=== PATIENT | male | born 1960 | race Caucasian/White ===

== ENCOUNTER → 2016-08-27 | Outpatient (CLI) | payer MEDICARE, MEDICAID ==
[~2016-08-27] MED LIST: ALBU8.5H2 IH; ATOR20TA66 PO; B12/1TAB3 PO; BENZ-23 PO; CLN150C PO; CYAN50TA3 PO; EXEN2PEN INJ; FAMO-119 PO; FAMO20TA5 PO; FENO145T2 PO; HYDR-1231 PO; HYDR-700 PO; IBUP800T26 PO; KETO10TA PO; LEVO250T7 PO; LEVO500T2 PO; LISI-552 PO; LISI10TA2 PO; MECL-106 PO; METF500T4 PO; METF500T8 PO; METO-333 PO; NF-ESOM40C PO; OMG1KC PO; ONDA8TAB12 PO; PANT20TA2 PO; PANT40TA2 PO; PANT40TA3 PO; POLY17PO23 PO; PRD20T PO; SERT50TA9 PO; TRAM-21 PO
--- OUTSIDE RECORDS SUMMARY | 2016-08-27 12:14 | XMS REPORT | Continuity of Care Document ---
Author Author [facility] Organization [facility] Address Unknown Phone Unavailable Care Team Providers Care Inspector Eyeglass Name Role Phone BullrickDarya PCP [phone] Source Comments Some departments are not documenting in the electronic medical record. If you do not see the information that you expected, contact Release of Information in the Health Information Management department at [phone] for further assistance in locating additional records.[facility] Active Allergies and Adverse Reactions Allergen Noted Date Severity Reactions Comments Aspirin 02/17/2016 Low NAUSEA AND VOMITING Penicillins 02/17/2016 Medium HIVES Current Medications Prescription Sig. Disp. Refills Start End Date Status Date pantoprazole DR Take 40 mg by mouth Active (PROTONIX) 40 mg tablet daily. lisinopril/hydrochlorothi Take 20 mg by mouth Active azide (ZESTORETIC) daily. 20/12.5 mg tablet 20 mg sertraline (ZOLOFT) 50 mg Take 50 mg by mouth Active tablet daily. hydrOXYzine (ATARAX) 25 Take 25 mg by mouth three Active mg tablet times daily as needed for Itching. metFORMIN (GLUCOPHAGE) Take 500 mg by mouth Active 500 mg tablet twice daily with meals. DOCOSAHEXANOIC ACID/EPA Take 1,000 mg by mouth Active (FISH OIL PO) daily. cyanocobalamin(+) Take 100 mcg by mouth Active (VITAMIN B-12) 100 mcg daily. tablet Active Problems Problem Noted Date Abnormal liver enzymes 02/20/2016 HTN (hypertension) Anxiety Depression GERD (gastroesophageal reflux disease) Type 2 diabetes mellitus (HCC) Social History Tobacco Use Types Packs/Day Years Used Date Former Smoker Cigarettes 1.5 13 02/16/1977 - 02/16/2003 Alcohol Use Drinks/Week oz/Week Comments Yes 0 Standard 0.0 Last drink 42 years old, prior to that 6 beers/day drinks or for 10 days. equivalent Last Filed Vital Signs Vital Sign Reading Time Taken Blood Pressure 138/69 04/27/2016 12:20 PM CDT Pulse 54 04/27/2016 12:20 PM CDT Temperature 36.4 C (97.6 F) 04/27/2016 12:20 PM CDT Respiratory Rate - - Height 1.727 m (5' 8") 04/27/2016 12:20 PM CDT Weight 81.012 kg (178 lb 9.6 oz) 04/27/2016 12:20 PM CDT Body Mass Index 27.16 04/27/2016 12:20 PM CDT Oxygen Saturation 98% 04/27/2016 12:20 PM CDT Plan of Care Date Type Specialty Providers Description 11/02/2016 Appointment Hepatology Radu Porter MD [address] [facility] [address] [place] [address] [phone] (Fax) Health Maintenance Due Date Last Done Comments Physical (Comprehensive) 1967 Exam Pertussis Vaccine 1971 Tetanus Vaccine 1977 Dilated Eye Exam 1978 Foot Exam 1978 Microalbumin 1978 Pneumonia Vaccine (Dm) 1978 Colorectal Cancer 2010 Screening Influenza Vaccine 03/24/2016 Hba1c 10/26/2016 04/27/2016, 02/17/2016 Hepatitis C Screening Completed 02/17/2016 Results from Last 3 Months Not on file
[2016-08-27 12:54] LABS: ALBUMIN 4.5 G/DL (3.2-4.5); BILIRUBIN,DIRECT 0.2 MG/DL (0.0-0.3); BILIRUBIN,INDIRECT 0.3 MG/DL; BILIRUBIN,TOTAL 0.5 MG/DL (0.1-1.0); TOTAL PROTEIN 7.5 G/DL (6.4-8.2)
== END ==
LOC: LAB 12:11
PROVIDERS: ATTEND Physician Assistant
DX: E78.2 Mixed hyperlipidemia (principal)
CPT/HCPCS: 36415; 80061; 80076

== ENCOUNTER 2016-09-17 22:23 | Emergency (ER) | payer MEDICARE, MEDICAID ==
[~2016-09-17] VITALS: Ht 167.6 cm; Wt 81.6 kg
[~2016-09-17 22:23] MED LIST changes: -CYAN50TA3 PO; -EXEN2PEN INJ; -FAMO-119 PO; -LISI-552 PO; -MECL-106 PO; -METF500T8 PO; -METO-333 PO; -NF-ESOM40C PO; -ONDA8TAB12 PO; -PANT40TA3 PO
--- OUTSIDE RECORDS SUMMARY | 2016-09-17 22:30 | XMS REPORT | Continuity of Care Document ---
Author Author [facility] Organization [facility] Address Unknown Phone Unavailable Care Team Providers Care Acute Specialist Name Role Phone BullrickDarya PCP [phone] Source Comments Some departments are not documenting in the electronic medical record. If you do not see the information that you expected, contact Release of Information in the Health Information Management department at [phone] for further assistance in locating additional records.[facility] Active Allergies and Adverse Reactions Allergen [...] 11/02/2016 Appointment Hepatology Radu Porter MD [address] [facility] [address] [place] [address] [phone] (Fax) Health Maintenance Due Date Last Done Comments Physical (Comprehensive) 1967 Exam Pertussis Vaccine 1971 Tetanus Vaccine 1977 Dilated Eye Exam 1978 Foot Exam 1978 Microalbumin 1978 Pneumonia Vaccine (Dm) 1978 Colorectal Cancer 2010 Screening Influenza Vaccine 03/24/2016 Hba1c 10/26/2016 04/27/2016, 02/17/2016 Hepatitis C Screening Completed 02/17/2016 Results from Last 3 Months Not on file
[2016-09-17] MEDS ORDERED: FAMOTIDINE 20MG/2ML IV (PEPCID) IVP ONE (23:00)
[2016-09-17] MEDS ORDERED: ONDANSETRON 4 MG/2 ML (SDV) Z0FRAN IVP ONE (23:00)
[2016-09-17 23:11] LABS: BASOPHILS # (AUTO) 0.1 10^3/uL (0.0-0.1); BASOPHILS % (AUTO) 0 % (0-10); EOSINOPHILS # (AUTO) 0.7 10^3/uL (0.0-0.3); EOSINOPHILS % (AUTO) 6 % (0-10); LYMPHOCYTES # (AUTO) 1.2 X 10^3 (1.0-4.0); LYMPHOCYTES % (AUTO) 10 % (12-44); MEAN CORPUSCULAR HEMOGLOBIN 29 PG (25-34); MEAN CORPUSCULAR HGB CONC 34 G/DL (32-36); MEAN CORPUSCULAR VOLUME 86 FL (80-99); MEAN PLATELET VOLUME 11.2 FL (7.4-10.4); MONOCYTES # (AUTO) 0.9 X 10^3 (0.0-1.0); MONOCYTES % (AUTO) 7 % (0-12); NEUTROPHILS # (AUTO) 9.8 X 10^3 (1.8-7.8); NEUTROPHILS % (AUTO) 77 % (42-75); PLATELET COUNT 198 10^3/uL (130-400); RED BLOOD COUNT 5.15 10^6/uL (4.35-5.85); RED CELL DISTRIBUTION WIDTH 14.4 % (10.0-14.5); WHITE BLOOD COUNT 12.7 10^3/uL (4.3-11.0)
[2016-09-17 23:31] LABS: ALANINE AMINOTRANSFERASE 135 U/L (0-55); ALBUMIN 4.6 G/DL (3.2-4.5); ANION GAP 13 MMOL/L (5-14); ASPARTATE AMINO TRANSFERASE 61 U/L (5-34); BILIRUBIN,TOTAL 0.6 MG/DL (0.1-1.0); BLOOD UREA NITROGEN 19 MG/DL (7-18); BUN/CREATININE RATIO 22; CALCIUM 10.2 MG/DL (8.5-10.1); CARBON DIOXIDE 21 MMOL/L (21-32); CHLORIDE 106 MMOL/L (98-107); CREATININE SERUM 0.85 MG/DL (0.60-1.30); GFR ESTIMATED > 60; GLUCOSE 147 MG/DL (70-105); LIPASE 21 U/L (8-78); POTASSIUM 3.8 MMOL/L (3.6-5.0); SODIUM 140 MMOL/L (135-145); TOTAL PROTEIN 7.7 G/DL (6.4-8.2)
[2016-09-17 23:37] LABS: TROPONIN I < 0.30 NG/ML (<0.30)
[2016-09-17 23:38] LABS: BILIRUBIN,URINE NEGATIVE (NEGATIVE); KETONES,URINE NEGATIVE (NEGATIVE); LEUKOCYTE ESTERASE ,URINE 1+ (NEGATIVE); NITRITE,URINE NEGATIVE (NEGATIVE); PH,URINE 5 (5-9); PROTEIN,URINE NEGATIVE (NEGATIVE); UROBILINOGEN,URINE NORMAL (NORMAL)
--- NOTE | 2016-09-17 23:46 | ED GI ---
General Chief Complaint: Abdominal/GI Problems Stated Complaint: VOMITING, DIZZY Nursing Triage Note: Ambulatory to ED 3 with with reports of nausea for the past hour. Patient reports that he was sitting in his chair at home when he "got real sick." Patient actively denies any vomiting, diarrhea, constipation or abdominal pain, but reports that he "is real sick." Patient reports no history of nausea. Sepsis Screen: No Definite Risk Source of Information: Patient, RN Notes Reviewed Exam Limitations: No Limitations History of Present Illness Time Seen By Provider: 22:50 Initial Comments As above and below. Patient a poor historian. Timing/Duration: 1 Hour Severity/Quality: Other (denies any pain presently) Activities at Onset: None (sitting in chair @ home) Modifying Factors: Improves With Other (none) Associated Symptoms: Denies Symptoms Allergies and Home Medications Allergies Coded Allergies: Penicillins (Unverified Allergy, Unknown, 04/15/14) aspirin (Unverified Allergy, Unknown, 04/15/14) Home Medications Cyanocobalamin (Vitamin B-12) 50 Mcg Tablet 50 MCG PO DAILY (Reported) Esomeprazole Magnesium 40 Mg Cap 40 MG PO DAILY (Reported) Exenatide Microspheres 2 Mg/0.65 Ml Pen.injctr 2 MG INJ We (Reported) Famotidine 20 Mg Tablet #10 20 MG PO BID Prescribed by: MAHESH HARDWICK on 09/18/16 010 Lisinopril 20 Mg Tablet 20 MG PO DAILY (Reported) Lisinopril 20 Mg Tablet 10 MG PO HS (Reported) TAKES 1/2 (20MG) TABLET Meclizine HCl 25 Mg Tablet #20 25 MG PO Q6H PRN PRN nausea/dizziness Prescribed by: MAHESH HARDWICK on 09/18/16 010 Metformin HCl 500 Mg Tab.er.24h 500 MG PO 1800 (Reported) Metoprolol Tartrate 25 Mg Tablet 25 MG PO BID (Reported) Unity 3 Polyunsat Fatty Acids 1,000 Mg Cap 2,000 MG PO BID (Reported) TAKES 2 (1000MG) CAPSULES Ondansetron HCl 8 Mg Tablet #20 8 MG PO Q6H PRN PRN NAUSEA Prescribed by: BERONICA TALBERT on 09/20/16 1140 Pantoprazole Sodium 40 Mg Tablet.dr 40 MG PO DAILY (Reported) Sertraline HCl 50 Mg Tablet 50 MG PO DAILY (Reported) Review of Systems Constitutional: see HPI other ("feels ill") Gastrointestinal: Denies Abdominal Pain, Denies Diarrhea, Denies Nausea, Denies Vomiting All Other Systems Reviewed Negative Unless Noted: Yes (Negative excepted noted.) Past Wvyrmma-Ntxniy-Rnsvqp Hx Patient Social History Alcohol Use: Denies Use Recreational Drug Use: No Smoking Status: Never a Smoker Former Smoker/When Quit: Jul 24, 2000 2nd Hand Smoke Exposure: No Recent Foreign Travel: No Contact w/Someone Who Travel: No Recent Infectious Disease Expo: No Recent Hopitalizations: No Immunizations Up To Date Tetanus Booster (TDap): Less than 5yrs Date of Influenza Vaccine: Apr 23, 2014 Seasonal Allergies Seasonal Allergies: No Surgeries HX Surgeries: Yes Surgeries: Nose Respiratory Hx Respiratory Disorders: No Cardiovascular Hx Cardiac Disorders: Yes Cardiac Disorders: High Cholesterol, Hypertension Neurological Hx Neurological Disorders: No Genitourinary Hx Genitourinary Disorders: No Gastrointestinal Hx Gastrointestinal Disorders: Yes (FATTY LIVER) Gastrointestinal Disorders: Liver Disease/Jaundice Musculoskeletal Hx Musculoskeletal Disorders: No Endocrine Hx Endocrine Disorders: Yes Endocrine Disorders: Diabetes, Non-Insulin dep HEENT HX ENT Disorders: No Cancer Hx Cancer: No Psychosocial Hx Psychiatric Problems: No Integumentary HX Skin/Integumentary Disorder: No Blood Transfusions Hx Blood Disorders: No Physical Exam Vital Signs Capillary Refill : Less Than 3 Seconds General Appearance: WD/WN no apparent distress HEENT: normal ENT inspection Neck: normal inspection Respiratory: no respiratory distress Cardiovascular: regular rate, rhythm Gastrointestinal: non tender soft Rectal: deferred Neurologic/Psychiatric: no motor/sensory deficits alert oriented x 3 Skin: warm/dry Progress/Results/Core Measures Results/Orders Lab Results Laboratory Tests Test 09/17/16 23:05 09/17/16 23:30 Range/Units Alanine Aminotransferase (ALT/SGPT) 135 H 0-55 U/L Albumin 4.6 H 3.2-4.5 G/DL Alkaline Phosphatase 71 40-136 U/L Anion Gap 13 5-14 MMOL/L Aspartate Amino Transf (AST/SGOT) 61 H 5-34 U/L BUN/Creatinine Ratio 22 Basophils # (Auto) 0.1 0.0-0.1 10^3/uL Basophils (%) (Auto) 0 0-10 % Blood Urea Nitrogen 19 H 7-18 MG/DL Calcium Level 10.2 H 8.5-10.1 MG/DL Carbon Dioxide Level 21 21-32 MMOL/L Chloride Level 106 98-107 MMOL/L Creatinine 0.85 0.60-1.30 MG/DL Eosinophils # (Auto) 0.7 H 0.0-0.3 10^3/uL Eosinophils (%) (Auto) 6 0-10 % Estimat Glomerular Filtration Rate > 60 Glucose Level 147 H 70-105 MG/DL Hematocrit 44 40-54 % Hemoglobin 15.1 13.3-17.7 G/DL Lipase 21 8-78 U/L Lymphocytes # (Auto) 1.2 1.0-4.0 X 10^3 Lymphocytes (%) (Auto) 10 L 12-44 % Mean Corpuscular Hemoglobin 29 25-34 PG Mean Corpuscular Hemoglobin Concent 34 32-36 G/DL Mean Corpuscular Volume 86 80-99 FL Mean Platelet Volume 11.2 H 7.4-10.4 FL Monocytes # (Auto) 0.9 0.0-1.0 X 10^3 Monocytes (%) (Auto) 7 0-12 % Neutrophils # (Auto) 9.8 H 1.8-7.8 X 10^3 Neutrophils (%) (Auto) 77 H 42-75 % Platelet Count 198 130-400 10^3/uL Potassium Level 3.8 3.6-5.0 MMOL/L Red Blood Count 5.15 4.35-5.85 10^6/uL Red Cell Distribution Width 14.4 10.0-14.5 % Sodium Level 140 135-145 MMOL/L Total Bilirubin 0.6 0.1-1.0 MG/DL Total Protein 7.7 6.4-8.2 G/DL Troponin I < 0.30 <0.30 NG/ML White Blood Count 12.7 H 4.3-11.0 10^3/uL Urine Bacteria NEGATIVE /HPF Urine Bilirubin NEGATIVE NEGATIVE Urine Casts NONE /LPF Urine Clarity CLEAR Urine Color YELLOW Urine Crystals NONE /LPF Urine Culture Indicated NO Urine Glucose (UA) NEGATIVE NEGATIVE Urine Ketones NEGATIVE NEGATIVE Urine Leukocyte Esterase 1+ H NEGATIVE Urine Mucus NEGATIVE /LPF Urine Nitrite NEGATIVE NEGATIVE Urine Protein NEGATIVE NEGATIVE Urine RBC NONE /HPF Urine RBC (Auto) NEGATIVE NEGATIVE Urine Specific [place] 1.020 1.016-1.022 Urine Squamous Epithelial Cells 2-5 /HPF Urine Urobilinogen NORMAL NORMAL MG/DL Urine WBC NONE /HPF Urine pH 5 5-9 My Orders Orders-MAHESH HARDWICK DO Saline Lock/Iv-Start (09/17/16 22:57) Ekg Tracing (09/17/16 22:57) Cbc With Automated Diff (09/17/16 22:57) Comprehensive Metabolic Panel (09/17/16 22:57) Lipase (09/17/16 22:57) Troponin I (09/17/16 22:57) Ua Culture If Indicated (09/17/16 22:57) Famotidine Injection (Pepcid Injection) (09/17/16 23:00) Ondansetron Injection (Zofran Injectio (09/17/16 23:00) Ct Abdomen/Pelvis W (09/18/16 00:01) Iohexol Injection (Omnipaque 350 Mg/Ml 1 (09/18/16 00:15) Ns (Ivpb) (Sodium Chloride 0.9% Ivpb Bag (09/18/16 00:15) Meclizine Tablet (Antivert Tablet) (09/18/16 01:00) Dexamethasone Pf Injection (Decadron Pf (09/18/16 01:15) Iv Push Lard Maker Ed (09/17/16 ) Medications Given in ED Vital Signs/I&O Blood Pressure Mean: 113 ECG Initial ECG Impression Date: Sep 17, 2016 Initial ECG Impression Time: 23:20 Initial ECG Rate: 63 Initial ECG Rhythm: Normal Sinus Initial ECG Intervals: Normal Initial ECG Impression: Nonspecific Changes (LVH) Initial ECG Comparisson: Unchanged Diagnostic Imaging Diagonstic Imaging: CT Plain Films/CT/US/NM/MRI: abdomen, pelvis Reviewed: [facility]) Departure Impression Impression: Primary Impression: Viral gastroenteritis Disposition: 01 HOME, SELF-CARE Condition: Stable Departure-Patient Inst. Referrals: SABAS GOFF DO (PCP/Family) Primary Care Physician Patient Instructions: Viral Gastroenteritis, Adult (DC) Add. Discharge Instructions: All discharge instructions reviewed with patient and/or family. Voiced understanding. WILL NEED TO FOLLOW UP WITH YOUR PCP IF NOT DOING BETTER IN THE NEXT 48-72 HOURS. Scripts Meclizine HCl 25 Mg [id number] Mg PO Q6H PRN nausea/dizziness #20 TAB Ref 0 Prov:MAHESH HARDWICK DO 09/18/16 Famotidine (Pepcid)20 Mg [id number] Mg PO BID #10 TAB Ref 0 Prov:MAHESH HARDWICK DO 09/18/16 MAHESH HARDWICK DO Sep 17, 2016 23:46 Initial ECG Impression Time: 23:20 Initial ECG Rate: 63 Initial ECG Rhythm: Normal Sinus Initial ECG Intervals: Normal Initial ECG Impression: Nonspecific Changes (LVH) Initial ECG Comparisson: Unchanged Departure Impression Impression: Primary Impression: Viral gastroenteritis Disposition: HOME, SELF-CARE Condition: Stable Departure-Patient Inst. Referrals: SABAS GOFF DO (PCP/Family) Primary Care Physician Patient Instructions: Viral Gastroenteritis, Adult (DC) Add. Discharge Instructions: All discharge instructions reviewed with patient and/or family. Voiced understanding. WILL NEED TO FOLLOW UP WITH YOUR PCP IF NOT DOING BETTER IN THE NEXT 48-72 HOURS. Scripts Meclizine HCl 25 Mg [id number] Mg PO Q6H PRN nausea/dizziness #20 TAB Ref 0 Prov:MAHESH HARDWICK DO 09/18/16 Famotidine (Pepcid)20 Mg [id number] Mg PO BID #10 TAB Ref 0 Prov:MAHESH HARDWICK DO 09/18/16 MAHESH HARDWICK DO Sep 17, 2016 23:46
[2016-09-18] MEDS ORDERED: IOHEXOL 350 MG/ML 100 ML (OMNIPAQUE 350) VIAL IV ONE (00:15)
[2016-09-18] MEDS ORDERED: NS 100 ML (IVPB) BAG IV ONE (00:15)
[2016-09-18] MEDS ORDERED: MECLIZINE 25 MG (ANTIVERT) TAB PO ONE (01:00)
[2016-09-18] MEDS ORDERED: MECL-106 PO (01:02)
[2016-09-18] MEDS ORDERED: FAMO-119 PO (01:02)
[2016-09-18 01:14] VITALS: BP 140/80
[2016-09-18] MEDS ORDERED: DEXAMETHASONE PF 10 MG/ML (DECADRON) VIAL IV ONE (01:15)
--- NOTE | 2016-09-18 08:16 | Diagnostic Imaging Report ---
PROCEDURE: CT abdomen and pelvis with contrast. TECHNIQUE: Multiple contiguous axial images were obtained through the abdomen and pelvis after administration of intravenous contrast. INDICATION: Dizziness and vomiting. COMPARISON: 05/10/16. FINDINGS: The heart size is normal. The lung bases are clear. There is mild fatty infiltration of the liver. The gallbladder is unremarkable. There is no biliary ductal dilatation. The spleen is normal. The pancreas, adrenal glands and kidneys are unremarkable. The aorta is nonaneurysmal. There is fluid within the nondistended stomach. This is nonspecific however may reflect gastroenteritis. The bowel gas pattern is otherwise nonspecific. There is no free air and no ascites. There are no focal inflammatory changes. There are mild degenerative changes in the spine. IMPRESSION: The stomach is mildly distended with fluid. This is nonspecific however may reflect gastritis. Fatty infiltration of the liver. No other acute abnormality in the abdomen or pelvis. Dictated by: Dictated on workstation # [id number]
== END 2016-09-18 01:10 | disposition home or self-care (01) ==
LOC: EDUNIT# 22:23 → ER 22:25
DX: K52.9 Noninfective gastroenteritis and colitis, unspecified (principal); E11.9 Type 2 diabetes mellitus without complications; I10 Essential (primary) hypertension; Z79.84 Long term (current) use of oral hypoglycemic drugs; Z79.899 Other long term (current) drug therapy
CPT/HCPCS: 36415; 74177; 80053; 81000; 83690; 84484; 85025; 93005; 96374; 96375

== ENCOUNTER 2016-09-19 21:46 | Observation (INO) | payer MEDICARE, MEDICAID ==
[~2016-09-19] VITALS: Ht 167.6 cm; Wt 77.1 kg
[~2016-09-19 21:46] MED LIST changes: +FAMO-119 PO; +MECL-106 PO
--- OUTSIDE RECORDS SUMMARY | 2016-09-19 21:51 | XMS REPORT | Continuity of Care Document ---
Author Author [facility] Organization [facility] Address Unknown Phone Unavailable Care Team Providers Care Shot Tube Machine Tender Name Role Phone Darya Walker PCP [phone] Source Comments Some departments are not documenting in the electronic medical record. If you do not see the information that you expected, contact Release of Information in the Health Information Management department at [phone] for further assistance in locating additional records.[facility] Active Allergies and Adverse Reactions Allergen [...] 11/02/2016 Appointment Hepatology Radu Porter MD [address] [facility] [address] [place] [address] [phone] (Fax) Health Maintenance Due Date Last Done Comments Physical (Comprehensive) 1967 Exam Pertussis Vaccine 1971 Tetanus Vaccine 1977 Dilated Eye Exam 1978 Foot Exam 1978 Microalbumin 1978 Pneumonia Vaccine (Dm) 1978 Colorectal Cancer 2010 Screening Influenza Vaccine 03/24/2016 Hba1c 10/26/2016 04/27/2016, 02/17/2016 Hepatitis C Screening Completed 02/17/2016 Results from Last 3 Months Not on file
[2016-09-19] MEDS ORDERED: LACTATED RINGERS 1,000 ML IV ONE (22:21)
[2016-09-19] MEDS ORDERED: ONDANSETRON 4 MG/2 ML (SDV) Z0FRAN IVP ONE (22:30)
[2016-09-19 22:43] LABS: BASOPHILS % (AUTO) 0 % (0-10); EOSINOPHILS # (AUTO) 0.1 10^3/uL (0.0-0.3); EOSINOPHILS % (AUTO) 1 % (0-10); LYMPHOCYTES # (AUTO) 1.9 X 10^3 (1.0-4.0); LYMPHOCYTES % (AUTO) 18 % (12-44); MEAN CORPUSCULAR HEMOGLOBIN 29 PG (25-34); MEAN CORPUSCULAR HGB CONC 34 G/DL (32-36); MEAN CORPUSCULAR VOLUME 85 FL (80-99); MEAN PLATELET VOLUME 11.6 FL (7.4-10.4); MONOCYTES # (AUTO) 1.6 X 10^3 (0.0-1.0); MONOCYTES % (AUTO) 15 % (0-12); NEUTROPHILS # (AUTO) 6.8 X 10^3 (1.8-7.8); NEUTROPHILS % (AUTO) 66 % (42-75); PLATELET COUNT 226 10^3/uL (130-400); RED BLOOD COUNT 5.45 10^6/uL (4.35-5.85); RED CELL DISTRIBUTION WIDTH 14.7 % (10.0-14.5); WHITE BLOOD COUNT 10.3 10^3/uL (4.3-11.0)
--- NOTE | 2016-09-19 22:47 | ED GI ---
General Chief Complaint: Abdominal/GI Problems Stated Complaint: VOMITING Nursing Triage Note: PT REPORTS UNABLE TO KEEP ANYTHING DOWN SINCE MONDAY EVENING. DIARRHEA STARTING MONDAY EVENING ALSO. PT REPORTS DIZZINESS AND NAUSEA. PT HAS THROWN UP X 4 TODAY. Sepsis Screen: No Definite Risk Source of Information: Patient History of Present Illness Time Seen By Provider: 22:20 Initial Comments PT C/O NAUSEA/VOMITING /DIARRHEA SINCE MONDAY EVENING 09/17/16 HAS VOMITED X 2 TODAY DIARRHEA APPROXIMATELY 10 TIMES TODAY--NO BLACK/BLOODY/TARRY STOOLS NO ABDOMINAL PAIN NO FEVER STATES HE HAS BEEN A LITTLE DIZZY OFF AND ON TODAY STATES HE CAN'T KEEP LIQUIDS DOWN--HAD CHICKEN NOODLE SOUP AND ORANGE JUICE AT 1930 TONIGHT AND THREW IT UP LAST VOID WAS SOMETIME THIS AFTERNOON NO KNOWN SICK CONTACTS OR SUSPICIOUS FOODS PT SEEN HERE 09/18/16 FOR THIS PROBLEM AND WAS GIVEN RX FOR MECLIZINE AND PEPCID PT STATES NO IMPROVEMENT PCP: [facility], [employer] ARRANGEMENT COUNSELOR DAKOTA LOPEZ Allergies and Home Medications Allergies Coded Allergies: Penicillins (Unverified Allergy, Unknown, 04/15/14) aspirin (Unverified Allergy, Unknown, 04/15/14) Home Medications B12/Levomefolate Calcium/B-6 1 Each Tablet 1 EACH PO DAILY (Reported) Famotidine 20 Mg Tablet #10 20 MG PO BID Prescribed by: MAHESH HARDWICK on 09/18/16 010 Hydroxyzine HCl 25 Mg Tablet 25 MG PO BID (Reported) Lisinopril 10 Mg Tablet 10 MG PO DAILY (Reported) Meclizine HCl 25 Mg Tablet #20 25 MG PO Q6H PRN PRN nausea/dizziness Prescribed by: MAHESH HARDWICK on 09/18/16101 Metformin HCl 500 Mg Tablet 500 MG PO DAILY (Reported) [place] 3 Polyunsat Fatty Acids 1,000 Mg Cap 1,000 MG PO DAILY (Reported) Pantoprazole Sodium 40 Mg Tablet.dr #15 40 MG PO DAILY Prescribed by: RASHID RAMIREZ on 09/23/15 025 Sertraline HCl 50 Mg Tablet 50 MG PO (Reported) Review of Systems Constitutional: see HPI dizzinessNo fever, No malaise, No weakness EENTM: No Symptoms Reported Respiratory: No Symptoms Reported Cardiovascular: No Symptoms Reported Gastrointestinal: See HPI Diarrhea Nausea Poor Appetite Poor Fluid Intake Vomiting Genitourinary: See HPI (DECREASED OUTUPT) Musculoskeletal: no symptoms reported Skin: no symptoms reported Psychiatric/Neurological: No Symptoms Reported Endocrine: No Symptoms Reported Hematologic/Lymphatic: No Symptoms Reported Past Wvacmho-Wuijlz-Uutmgg Hx Patient Social History Alcohol Use: Denies Use Recreational Drug Use: No Smoking Status: Never a Smoker Former Smoker/When Quit: Jul 24, 2000 2nd Hand Smoke Exposure: No Recent Foreign Travel: No Contact w/Someone Who Travel: No Recent Infectious Disease Expo: No Recent Hopitalizations: No Immunizations Up To Date Tetanus Booster (TDap): Less than 5yrs Date of Influenza Vaccine: Apr 23, 2014 Seasonal Allergies Seasonal Allergies: No Surgeries HX Surgeries: Yes (NASAL FRACTURE REPAIR) Surgeries: Nose Respiratory Hx Respiratory Disorders: No Cardiovascular Hx Cardiac Disorders: Yes Cardiac Disorders: High Cholesterol, Hypertension Neurological Hx Neurological Disorders: No Genitourinary Hx Genitourinary Disorders: No Gastrointestinal Hx Gastrointestinal Disorders: Yes (FATTY LIVER) Gastrointestinal Disorders: Liver Disease/Jaundice Musculoskeletal Hx Musculoskeletal Disorders: No Endocrine Hx Endocrine Disorders: Yes Endocrine Disorders: Diabetes, Non-Insulin dep HEENT HX ENT Disorders: No Cancer Hx Cancer: No Psychosocial Hx Psychiatric Problems: Yes Behavioral Health Disorders: Anxiety, Depression Integumentary HX Skin/Integumentary Disorder: No Blood Transfusions Hx Blood Disorders: No Physical Exam Vital Signs VS - Last 72 Hours, by Label 09/19/16 21:58 Pulse 92 Resp 18 B/P 126/88 Pulse Ox 95 O2 Delivery Room Air Capillary Refill : Less Than 3 Seconds General Appearance: WD/WN no apparent distress other (DOES NOT APPEAR ILL OR TO BE IN ANY DISCOMFORT) HEENT: other (EDENTULOUS, DRY ORAL MUCOSA) Neck: non-tender full range of motion supple normal inspection Respiratory: normal breath sounds no respiratory distress no accessory muscle use Cardiovascular: regular rate, rhythm no murmur Gastrointestinal: normal bowel sounds soft no organomegaly no pulsatile massNo distended, No guarding, No rebound, tenderness (MILD EPIGASTRIC TENDERNESS) Extremities: normal inspection Back: no CVA tenderness Neurologic/Psychiatric: breast splitter II-XII nml as tested no motor/sensory deficits alert normal mood/affect oriented x 3 Skin: normal color warm/dry Progress/Results/Core Measures Results/Orders Lab Results Laboratory Tests Test 09/19/16 22:35 09/19/16 22:40 Range/Units Alanine Aminotransferase (ALT/SGPT) 228 H 0-55 U/L Albumin 4.7 H 3.2-4.5 G/DL Alkaline Phosphatase 70 40-136 U/L Amylase Level 25 25-125 U/L Anion Gap 12 5-14 MMOL/L Aspartate Amino Transf (AST/SGOT) 114 H 5-34 U/L BUN/Creatinine Ratio 27 Basophils # (Auto) 0.0 0.0-0.1 10^3/uL Basophils (%) (Auto) 0 0-10 % Blood Urea Nitrogen 25 H 7-18 MG/DL Calcium Level 8.9 8.5-10.1 MG/DL Carbon Dioxide Level 12 L 21-32 MMOL/L Chloride Level 112 H 98-107 MMOL/L Creatinine 0.93 0.60-1.30 MG/DL Eosinophils # (Auto) 0.1 0.0-0.3 10^3/uL Eosinophils (%) (Auto) 1 0-10 % Estimat Glomerular Filtration Rate > 60 Glucose Level 121 H 70-105 MG/DL Hematocrit 46 40-54 % Hemoglobin 15.9 13.3-17.7 G/DL Lipase 12 8-78 U/L Lymphocytes # (Auto) 1.9 1.0-4.0 X 10^3 Lymphocytes (%) (Auto) 18 12-44 % Mean Corpuscular Hemoglobin 29 25-34 PG Mean Corpuscular Hemoglobin Concent 34 32-36 G/DL Mean Corpuscular Volume 85 80-99 FL Mean Platelet Volume 11.6 H 7.4-10.4 FL Monocytes # (Auto) 1.6 H 0.0-1.0 X 10^3 Monocytes (%) (Auto) 15 H 0-12 % Neutrophils # (Auto) 6.8 1.8-7.8 X 10^3 Neutrophils (%) (Auto) 66 42-75 % Platelet Count 226 130-400 10^3/uL Potassium Level 3.7 3.6-5.0 MMOL/L Red Blood Count 5.45 4.35-5.85 10^6/uL Red Cell Distribution Width 14.7 H 10.0-14.5 % Sodium Level 136 135-145 MMOL/L Total Bilirubin 0.6 0.1-1.0 MG/DL Total Protein 8.0 6.4-8.2 G/DL White Blood Count 10.3 4.3-11.0 10^3/uL Urine Bacteria NEGATIVE /HPF Urine Bilirubin NEGATIVE NEGATIVE Urine Casts PRESENT /LPF Urine Clarity CLEAR Urine Color YELLOW Urine Crystals NONE /LPF Urine Culture Indicated NO Urine Glucose (UA) NEGATIVE NEGATIVE Urine Hyaline Casts 5-10 H /LPF Urine Ketones NEGATIVE NEGATIVE Urine Leukocyte Esterase 1+ H NEGATIVE Urine Mucus MODERATE H /LPF Urine Nitrite NEGATIVE NEGATIVE Urine Protein 2+ H NEGATIVE Urine RBC NONE /HPF Urine RBC (Auto) NEGATIVE NEGATIVE Urine Specific [place] 1.020 1.016-1.022 Urine Urobilinogen NORMAL NORMAL MG/DL Urine WBC 2-5 /HPF Urine pH 6 5-9 My Orders Orders-RASHID RAMIREZ DO Saline Lock/Iv-Start (09/19/16 22:21) Amylase (09/19/16 22:21) Cbc With Automated Diff (09/19/16 22:21) Comprehensive Metabolic Panel (09/19/16 22:21) Lipase (09/19/16 22:21) Ua Culture If Indicated (09/19/16 22:21) Saline Lock/Iv-Start (09/19/16 22:21) Lactated Ringers (Lr 1000 Ml Iv Solution (09/19/16 22:21) Ondansetron Injection (Zofran Injectio (09/19/16 22:30) Hepatitis Panel Acute (09/19/16 23:11) Medications Given in ED Current Medications Medications Dose Ordered Sig/Theresa Route Start Time Stop Time Status Last Admin Dose Admin Lactated Ringer's 1,000 ml @ 0 mls/hr Q0M ONCE IV 09/19/16 22:21 09/19/16 22:23 DC 09/19/16 22:29 0 MLS/HR Ondansetron HCl 8 mg ONCE ONCE IVP 09/19/16 22:30 09/19/16 22:31 DC 09/19/16 22:30 8 MG Vital Signs/I&O Vital Sign - Last 12Hours 09/19/16 21:58 Pulse 92 Resp 18 B/P 126/88 Pulse Ox 95 O2 Delivery Room Air Blood Pressure Mean: 101 Progress Note : Progress Note FEELS BETTER, NAUSEA IMPROVED WITH MEDICATIONS NO VOMITING OR DIARRHEA DURING ER STAY Departure Communication Progress Notes [id number]--SPOKE WITH DR. TALBERT, ACCEPTS PT FOR ADMIT/OBSERVATION. Impression Impression: Primary Impression: Acute gastroenteritis Additional Impressions: Dehydration Elevated liver enzymes NIDDM Disposition: ADMITTED INPATIENT Condition: Improved Decision to Admit Reason: Admit from ER (General) Decision to Admit/Date: Sep 19, 2016 Time/Decision to Admit Time: 23:15 Departure-Patient Inst. Referrals: SABAS GOFF DO (PCP/Family) Primary Care Physician RASHID RAMIREZ DO Sep 19, 2016 22:47
[2016-09-19 22:52] LABS: BILIRUBIN,URINE NEGATIVE (NEGATIVE); KETONES,URINE NEGATIVE (NEGATIVE); LEUKOCYTE ESTERASE ,URINE 1+ (NEGATIVE); NITRITE,URINE NEGATIVE (NEGATIVE); PH,URINE 6 (5-9); PROTEIN,URINE 2+ (NEGATIVE); UROBILINOGEN,URINE NORMAL (NORMAL)
[2016-09-19 23:00] LABS: ALANINE AMINOTRANSFERASE 228 U/L (0-55); ALBUMIN 4.7 G/DL (3.2-4.5); AMYLASE 25 U/L (25-125); ANION GAP 12 MMOL/L (5-14); ASPARTATE AMINO TRANSFERASE 114 U/L (5-34); BILIRUBIN,TOTAL 0.6 MG/DL (0.1-1.0); BLOOD UREA NITROGEN 25 MG/DL (7-18); BUN/CREATININE RATIO 27; CALCIUM 8.9 MG/DL (8.5-10.1); CARBON DIOXIDE 12 MMOL/L (21-32); CHLORIDE 112 MMOL/L (98-107); CREATININE SERUM 0.93 MG/DL (0.60-1.30); GFR ESTIMATED > 60; GLUCOSE 121 MG/DL (70-105); LIPASE 12 U/L (8-78); POTASSIUM 3.7 MMOL/L (3.6-5.0); SODIUM 136 MMOL/L (135-145)
[2016-09-20] VITALS: BP 170/83
[2016-09-20 01:30] VITALS: BP 130/78
[2016-09-20] MEDS ORDERED: ONDANSETRON 4 MG/2 ML (SDV) Z0FRAN IV PRN (01:30)
[2016-09-20] MEDS: 1/2 NS IV SOLUTION 1,000 ML IV SCH ×2 (01:32→08:36)
[2016-09-20 04:00] VITALS: BP 110/58
[2016-09-20 05:06] LABS: BASOPHILS % (AUTO) 0 % (0-10); EOSINOPHILS # (AUTO) 0.2 10^3/uL (0.0-0.3); EOSINOPHILS % (AUTO) 2 % (0-10); LYMPHOCYTES % (AUTO) 25 % (12-44); MEAN CORPUSCULAR HEMOGLOBIN 29 PG (25-34); MEAN CORPUSCULAR HGB CONC 34 G/DL (32-36); MEAN CORPUSCULAR VOLUME 86 FL (80-99); MEAN PLATELET VOLUME 11.5 FL (7.4-10.4); MONOCYTES # (AUTO) 1.4 X 10^3 (0.0-1.0); MONOCYTES % (AUTO) 18 % (0-12); NEUTROPHILS # (AUTO) 4.3 X 10^3 (1.8-7.8); NEUTROPHILS % (AUTO) 54 % (42-75); PLATELET COUNT 166 10^3/uL (130-400); RED BLOOD COUNT 4.86 10^6/uL (4.35-5.85); RED CELL DISTRIBUTION WIDTH 14.9 % (10.0-14.5); WHITE BLOOD COUNT 7.9 10^3/uL (4.3-11.0)
[2016-09-20 05:35] LABS: ALANINE AMINOTRANSFERASE 207 U/L (0-55); AMYLASE 21 U/L (25-125); ANION GAP 12 MMOL/L (5-14); ASPARTATE AMINO TRANSFERASE 106 U/L (5-34); BILIRUBIN,TOTAL 0.6 MG/DL (0.1-1.0); BLOOD UREA NITROGEN 17 MG/DL (7-18); BUN/CREATININE RATIO 25; CALCIUM 8.3 MG/DL (8.5-10.1); CARBON DIOXIDE 14 MMOL/L (21-32); CHLORIDE 112 MMOL/L (98-107); CREATININE SERUM 0.69 MG/DL (0.60-1.30); GFR ESTIMATED > 60; GLUCOSE 92 MG/DL (70-105); LIPASE 9 U/L (8-78); POTASSIUM 3.2 MMOL/L (3.6-5.0); SODIUM 138 MMOL/L (135-145); TOTAL PROTEIN 6.7 G/DL (6.4-8.2)
[2016-09-20] MEDS ORDERED: inSUlin (REGULAR) HUMAN 1 UNIT/0.01 ML (CHARGE PER UNIT) SC SCH (06:00)
[2016-09-20 08:39] VITALS: BP 125/66
[2016-09-20] MEDS ORDERED: CATHETER FLUSH 10 ML SYR IV PRN (08:45)
[2016-09-20] MEDS ORDERED: FLU TRIvalent (5 YOA+) 2016-17 (AFLURIA) 0.5 ML IM ONE (08:45)
[2016-09-20] MEDS ORDERED: PANTOPRAZOLE 40 MG/10 ML (PROTONIX) VIAL IV SCH (09:00)
[2016-09-20] MEDS ORDERED: PANT40TA3 PO (10:02)
[2016-09-20] MEDS ORDERED: EXEN2PEN INJ (10:02)
[2016-09-20] MEDS ORDERED: NF-ESOM40C PO (10:02)
[2016-09-20] MEDS ORDERED: METF500T8 PO (10:02)
[2016-09-20] MEDS ORDERED: METO-333 PO (10:02)
[2016-09-20] MEDS ORDERED: CYAN50TA3 PO (10:02)
[2016-09-20] MEDS ORDERED: LISI-552 PO ×2 (10:02)
--- NOTE | 2016-09-20 11:36 | Short Stay Summary ---
HPI History of Present Illness: 56 yo M from [facility] that stated that he has had 5 days of nausea and vomiting. He has not been able to keep any food down in that time period. He has been able to tolerate some fluids but not much. Vomit has been yellow in color. Denies any blood. + Diarrhea that started 2 days ago. Denies being around any other sick contacts. Denies any fever, chills, chest pain or shortness of breath. Source: patient, family Exam Limitations: no limitations Date seen by provider: Sep 20, 2016 Attending Physician Nena Klein MD PCP Barbara Menjivar DO Consult Date of Admission Sep 19, 2016 at 23:15 Home Medications Home Medications Reviewed patient Home Medication Reconciliation Form Allergies Coded Allergies: Penicillins (Unverified Allergy, Unknown, 04/15/14) aspirin (Unverified Allergy, Unknown, 04/15/14) CCJ-Pkchis-Imjeeh Hx Patient Social History Alcohol Use: Denies Use Recreational Drug Use: No Smoking Status: Former Smoker Former smoker/When Quit: Jul 24, 2000 2nd Hand Smoke Exposure: No Recent Foreign Travel: No Contact w/other who traveled: No Recent Hopitalizations: No Recent Infectious Disease Expo: No Physical Abuse Screen: No Sexual Abuse: No Immunizations Up To Date Tetanus Booster (TDap): Less than 5yrs Date of Influenza Vaccine: Apr 23, 2014 Past Medical History Elevated LFTS: Initial 2016 Family Medical History Family History: Alzheimer's disease 19 FATHER Arthritis G8 SISTER Cataracts G8 SISTER Completed stroke G8 SISTER Diabetes mellitus 19 FATHER 19 MOTHER G8 BROTHER Hypercholesterolemia G8 BROTHER G8 SISTER G8 SISTER Kidney disease 19 MOTHER G8 SISTER Myocardial infarction 19 FATHER Review of Systems ([facility]) Constitutional: no symptoms reportedNo chills, No fever, malaise EENTM: no symptoms reported Respiratory: no symptoms reportedNo cough, No dyspnea on exertion, No short of breath Cardiovascular: no symptoms reportedNo chest pain, No edema, No palpitations Gastrointestinal: No abdominal pain, No constipation, diarrhea nauseaNo vomiting Genitourinary: decreased outputNo dysuria, No frequency, No hematuria Musculoskeletal: no symptoms reported Skin: no symptoms reportedNo rash Psychiatric/Neurological: No Symptoms Reported Reviewed Test Results Reviewed Test Results Lab Laboratory Tests Test 09/19/16 22:35 09/19/16 22:40 09/20/16 00:05 09/20/16 04:50 Range/Units Alanine Aminotransferase (ALT/SGPT) 228 H 207 H 0-55 U/L Albumin 4.7 H 4.0 3.2-4.5 G/DL Alkaline Phosphatase 70 55 40-136 U/L Amylase Level 25 21 L 25-125 U/L Anion Gap 12 12 5-14 MMOL/L Aspartate Amino Transf (AST/SGOT) 114 H 106 H 5-34 U/L BUN/Creatinine Ratio 27 25 Basophils # (Auto) 0.0 0.0 0.0-0.1 10^3/uL Basophils (%) (Auto) 0 0 0-10 % Blood Urea Nitrogen 25 H 17 7-18 MG/DL Calcium Level 8.9 8.3 L 8.5-10.1 MG/DL Carbon Dioxide Level 12 L 14 L 21-32 MMOL/L Chloride Level 112 H 112 H 98-107 MMOL/L Creatinine 0.93 0.69 0.60-1.30 MG/DL Eosinophils # (Auto) 0.1 0.2 0.0-0.3 10^3/uL Eosinophils (%) (Auto) 1 2 0-10 % Estimat Glomerular Filtration Rate > 60 > 60 Glucose Level 121 H 92 70-105 MG/DL Hematocrit 46 42 40-54 % Hemoglobin 15.9 14.3 13.3-17.7 G/DL Lipase 12 9 8-78 U/L Lymphocytes # (Auto) 1.9 2.0 1.0-4.0 X 10^3 Lymphocytes (%) (Auto) 18 25 12-44 % Mean Corpuscular Hemoglobin 29 29 25-34 PG Mean Corpuscular Hemoglobin Concent 34 34 32-36 G/DL Mean Corpuscular Volume 85 86 80-99 FL Mean Platelet Volume 11.6 H 11.5 H 7.4-10.4 FL Monocytes # (Auto) 1.6 H 1.4 H 0.0-1.0 X 10^3 Monocytes (%) (Auto) 15 H 18 H 0-12 % Neutrophils # (Auto) 6.8 4.3 1.8-7.8 X 10^3 Neutrophils (%) (Auto) 66 54 42-75 % Platelet Count 226 166 130-400 10^3/uL Potassium Level 3.7 3.2 L 3.6-5.0 MMOL/L Red Blood Count 5.45 4.86 4.35-5.85 10^6/uL Red Cell Distribution Width 14.7 H 14.9 H 10.0-14.5 % Sodium Level 136 138 135-145 MMOL/L Total Bilirubin 0.6 0.6 0.1-1.0 MG/DL Total Protein 8.0 6.7 6.4-8.2 G/DL White Blood Count 10.3 7.9 4.3-11.0 10^3/uL Urine Bacteria NEGATIVE /HPF Urine Bilirubin NEGATIVE NEGATIVE Urine Casts PRESENT /LPF Urine Clarity CLEAR Urine Color YELLOW Urine Crystals NONE /LPF Urine Culture Indicated NO Urine Glucose (UA) NEGATIVE NEGATIVE Urine Hyaline Casts 5-10 H /LPF Urine Ketones NEGATIVE NEGATIVE Urine Leukocyte Esterase 1+ H NEGATIVE Urine Mucus MODERATE H /LPF Urine Nitrite NEGATIVE NEGATIVE Urine Protein 2+ H NEGATIVE Urine RBC NONE /HPF Urine RBC (Auto) NEGATIVE NEGATIVE Urine Specific [place] 1.020 1.016-1.022 Urine Urobilinogen NORMAL NORMAL MG/DL Urine WBC 2-5 /HPF Urine pH 6 5-9 Glucometer 117 H 70-110 MG/DL Radiology Hepatic steatosis. Date of Exam: 09/20/16 US ABDOMEN COMPLETE [id number] PROCEDURE: US abdomen complete. TECHNIQUE: Multiple real-time grayscale images were obtained over the abdomen in various projections. INDICATION: Epigastric pain. FINDINGS: The pancreas is obscured by bowel gas. The liver is hyperechoic, suggestive of fatty infiltration, with no focal mass identified. It is near the upper limits of normal in size measuring 18.4 cm caudally. The gallbladder demonstrates no stones or wall thickening. The CBD is obscured by the dense liver and bowel gas. The spleen is 11.7 cm in length, normal. The right kidney is 10.9 cm and the left kidney is 13.7 cm in length. There is no hydronephrosis seen. There is a hypoechoic lesion measuring 1.2 cm in the right kidney lower pole not associated with internal vascularity and with through transmission, suggestive of a complicated cyst. No definite solid mass. No fluid collection or ascites is seen. The sonographic Waldron sign is reportedly negative. The abdominal aorta and IVC are obscured by bowel gas IMPRESSION: Physical Exam-([facility]) Physical Exam Vital Signs VS - Last 72 Hours, by Label 09/19/16 09/19/16 09/20/16 09/20/16 21:58 23:44 00:00 01:22 Temp 98.1 98.5 Pulse 92 65 64 Resp 18 18 20 B/P 126/88 170/83 Pulse Ox 95 95 96 O2 Delivery Room Air Room Air Room Air 09/20/16 09/20/16 09/20/16 01:30 04:00 08:39 Temp 96.0 97.1 Pulse 64 62 Resp 18 12 B/P 130/78 110/58 125/66 Pulse Ox 95 95 O2 Delivery Room Air Room Air Capillary Refill : Less Than 3 Seconds General Appearance: WD/WN no apparent distress HEENT: PERRL/EOMI normal ENT inspection TMs normal pharynx normal Neck: non-tender full range of motion supple normal inspection Respiratory: chest non-tender lungs clear normal breath sounds no respiratory distress no accessory muscle use Cardiovascular: normal peripheral pulses regular rate, rhythm no edema no JVD no murmur Gastrointestinal: normal bowel sounds non tender soft no organomegaly no pulsatile massNo distended, No guarding, No rebound Extremities: normal range of motion non-tender normal inspection no pedal edema no calf tenderness normal capillary refill Neurologic/Psychiatric: refueler II-XII nml as tested no motor/sensory deficits alert normal mood/affect oriented x 3 Skin: normal color warm/dry Lymphatic: no adenopathy Short Stay Diagnosis Discharge Diagnosis-Short Stay Admission Diagnosis Severe Gastroenteritis Dehydration PO Intolerance Elevated liver enzymes Non Insulin Dependent DM HTN Final Discharge Diagnosis See Above Conclusion Plan 56 yo M that presented to ED several times in the last 2 days because of PO intolerance with severe N/V and dehydration Severe Gastroenteritis - Will advance diet slowly, Encouraged patient to continue bland/clear diet for the next 2-3 days - Push fluids Dehydration - Resolved with IV hydration, continue PO hydration PO Intolerance: Resolved Elevated liver enzymes - Patient states that he was told this earlier last year, CT scan with fatty liver, US shows diffuse fatty infiltration, no focal lesion, Has seen [facility] in the past - Hepatitis Panel pending Non Insulin Dependent DM: Stable, no changes made HTN: Controlled, no changes made Clinical Quality Measures DVT/VTE Risk/Contraindication: Risk Factor Score Per Nursin RFS Level Per Nursing on Admit: 2=Moderate Copy Copies To 1: Aaron PAREKH HOLLY R MD Sep 20, 2016 11:36
[2016-09-20] MEDS ORDERED: ONDA8TAB12 PO (11:40)
--- NOTE | 2016-09-20 11:43 | Discharge Instructions ---
Discharge Inst-[facility] Discharge Medications New, Converted or Re-Newed RX: Call to Patients Pharmacy New Medications: Ondansetron HCl (Ondansetron HCl) 8 Mg Tablet 8 MG PO Q6H PRN NAUSEA #20 TAB Continued Medications: Cyanocobalamin (Vitamin B-12) (Vitamin B-12) 50 Mcg Tablet 50 MCG PO DAILY TAB Esomeprazole Magnesium (Nexium) 40 Mg Cap 40 MG PO DAILY CAP Exenatide Microspheres (Bydureon Pen) 2 Mg/0.65 Ml Pen.injctr 2 MG INJ We EA Meclizine HCl (Meclizine HCl) 25 Mg Tablet 25 MG PO Q6H PRN nausea/dizziness #20 Ref 0 TAB Metformin HCl (Metformin HCl ER) 500 Mg Tab.er.24h 500 MG PO 1800 TAB [place] 3 Polyunsat Fatty Acids (Fish Oil 1,000 mg Capsule) 1,000 Mg Cap 2000 MG PO BID TAKES 2 (1000MG) CAPSULES CAP Discontinued Medications: Famotidine (Pepcid) 20 Mg Tablet 20 MG PO BID #10 Ref 0 TAB Pantoprazole Sodium (Pantoprazole Sodium) 40 Mg Tablet.dr 40 MG PO DAILY TAB Patient Instructions Goal/Follow Up Appt: You have an appointment with Darya Walker on October 06 @ 0120pm Patient Instructions: - It is very important that you stick to a bland diet for the next few days, if you try to advance too fast you will likely start to feel sick again - make sure to stay well hydrated with water Return to The Hospital For: - Blood in vomit or stool - Chest pain - Shortness of breath Activity & Diet Discharge Diet: Eat Small Frequent Meals ([place] meals and then advance to Diabetic diet) Activity as Tolerated: Yes Orders-Post D/C & Referrals Pneu Vac Indicated: Yes Copy Copies To 1: Aaron PAREKH HOLLY R MD Sep 20, 2016 11:43
[2016-09-20 12:00] VITALS: BP 130/67
--- NOTE | 2016-09-20 12:54 | Diagnostic Imaging Report ---
PROCEDURE: US abdomen complete. TECHNIQUE: Multiple real-time grayscale images were obtained over the abdomen in various projections. INDICATION: Epigastric pain. FINDINGS: The pancreas is obscured by bowel gas. The liver is hyperechoic, suggestive of fatty infiltration, with no focal mass identified. It is near the upper limits of normal in size measuring 18.4 cm caudally. The gallbladder demonstrates no stones or wall thickening. The CBD is obscured by the dense liver and bowel gas. The spleen is 11.7 cm in length, normal. The right kidney is 10.9 cm and the left kidney is 13.7 cm in length. There is no hydronephrosis seen. There is a hypoechoic lesion measuring 1.2 cm in the right kidney lower pole not associated with internal vascularity and with through transmission, suggestive of a complicated cyst. No definite solid mass. No fluid collection or ascites is seen. The sonographic Waldron sign is reportedly negative. The abdominal aorta and IVC are obscured by bowel gas IMPRESSION: Hepatic steatosis. Dictated by: Dictated on workstation # [id number]
[2016-09-20 17:00] VITALS: BP 130/67
== END 2016-09-20 16:14 | disposition home or self-care (01) ==
LOC: EDUNIT# 21:46 → ER 21:47 → 4TH 23:15 → UNDOADMOB 23:15 → 4TH 23:45 → UNDODISOB 09-20 17:20
PROVIDERS: ADMIT Family Medicine; ATTEND Family Medicine
DX: E86.0 Dehydration (principal); K52.9 Noninfective gastroenteritis and colitis, unspecified; R74.8 Abnormal levels of other serum enzymes; E11.9 Type 2 diabetes mellitus without complications; I10 Essential (primary) hypertension; Z87.891 Personal history of nicotine dependence; Z79.84 Long term (current) use of oral hypoglycemic drugs; Z79.899 Other long term (current) drug therapy
CPT/HCPCS: 36415; 76700; 80053; 80074; 81000; 82150; 82962; 83690; 85025; 96361; 96374; 99211; G0378

== ENCOUNTER → 2017-04-05 | Outpatient (CLI) | payer MEDICARE, MEDICAID ==
[~2017-04-05] MED LIST changes: +CYAN50TA3 PO; +EXEN2PEN INJ; +LISI-552 PO; +METF500T8 PO; +METO-333 PO; +NF-ESOM40C PO; +ONDA8TAB12 PO; +PANT40TA3 PO
--- NOTE | 2017-04-05 20:18 | Diagnostic Imaging Report ---
PROCEDURE: US carotid duplex, bilateral. TECHNIQUE: Multiple real-time grayscale images were obtained over the carotid arteries in various projections, bilaterally. Additional duplex Doppler and color Doppler images were also obtained. INDICATION: Vertigo. FINDINGS: Grayscale images demonstrate soft plaque along the proximal aspect of the right internal carotid artery. There is color-flow demonstrating patency of the common, internal and external carotid arteries, bilaterally. The left vertebral artery is not well visualized with color-flow not demonstrated. There is a waveform, however, seen with a weak arterial flow. This could be related to small size of the vessel or poor flow. The right vertebral artery demonstrates antegrade flow. The systolic velocities in the right ICA are 114, 96 and 103 cm/s. Left ICA velocities are 97, 93 and 83 cm/s. ICA/CCA ratios are up to 0.8 on both sides. IMPRESSION: 1. Underlying internal carotid artery stenosis estimated in the range of 0-40%, bilaterally. 2. Poor visualization of the left vertebral artery which could be related to small vessel size or poor flow. Dictated by: Dictated on workstation # [id number]
== END ==
LOC: RAD 14:44
PROVIDERS: ATTEND Nurse Practitioner Family
DX: I65.23 Occlusion and stenosis of bilateral carotid arteries (principal)
CPT/HCPCS: 93880

== ENCOUNTER → 2017-04-24 | Outpatient (CLI) | payer MEDICARE, MEDICAID ==
--- NOTE | 2017-04-24 19:45 | Diagnostic Imaging Report ---
PROCEDURE: MR angiography of the brain without the use of contrast. INDICATION: Headaches, syncope. TECHNIQUE: 3D [id number] non contrast enhanced MR angiography of the head was performed. A source data was reformatted into rotating MIP projections. FINDINGS: The anterior circulation demonstrates the intracranial ICAs to be relatively unremarkable. The middle cerebral arteries are unremarkable. Very slight hypoplastic A1 segments, right greater than left, are noted with the anterior cerebral arteries otherwise unremarkable. The posterior circulation demonstrates nonvisualization of the distal left vertebral artery with essentially the right vertebral artery supplying the basilar artery. There is a short segment apparent fenestration of the basilar artery. The posterior cerebral arteries appearing unremarkable. Posterior communicating arteries are not visualized. IMPRESSION: 1. The distal left vertebral artery is not visualized at the level of the skull base. Its level of termination is indeterminate. The basilar artery is essentially solely supplied by the right vertebral artery. Posterior communicating arteries are not visualized. Anterior circulation appearing unremarkable. Dictated by: Dictated on workstation # [id number]
== END ==
LOC: RAD 17:10
PROVIDERS: ATTEND Nurse Practitioner Family
DX: R51 Headache (principal); R55 Syncope and collapse
CPT/HCPCS: 70544

== ENCOUNTER → 2017-06-29 | Outpatient (CLI) | payer MEDICARE, MEDICAID ==
[2017-06-29 07:23] LABS: ALANINE AMINOTRANSFERASE 104 U/L (0-55); ALBUMIN 4.1 GM/DL (3.2-4.5); ANION GAP 8 MMOL/L (5-14); ASPARTATE AMINO TRANSFERASE 37 U/L (5-34); BILIRUBIN,TOTAL 0.3 MG/DL (0.1-1.0); BLOOD UREA NITROGEN 14 MG/DL (7-18); BUN/CREATININE RATIO 19; CALCIUM 9.7 MG/DL (8.5-10.1); CARBON DIOXIDE 28 MMOL/L (21-32); CHLORIDE 105 MMOL/L (98-107); CHOLESTEROL 289 MG/DL (< 200); CREATININE SERUM 0.72 MG/DL (0.60-1.30); DIRECT LDL 184 MG/DL (1-129); GFR ESTIMATED > 60; GLUCOSE 119 MG/DL (70-105); POTASSIUM 3.8 MMOL/L (3.6-5.0); SODIUM 141 MMOL/L (135-145); TOTAL PROTEIN 7.1 GM/DL (6.4-8.2); TRIGLYCERIDES 348 MG/DL (<150); VLDL CHOLESTEROL 70 MG/DL (5-40)
== END ==
LOC: LAB 06:49
PROVIDERS: ATTEND Physician Assistant
DX: I10 Essential (primary) hypertension (principal); R07.89 Other chest pain; E78.2 Mixed hyperlipidemia; I34.0 Nonrheumatic mitral (valve) insufficiency
CPT/HCPCS: 36415; 80053; 80061

== ENCOUNTER → 2017-07-05 | Outpatient (CLI) | payer MEDICARE, MEDICAID | LOC: CARD 12:25 | PROVIDERS: ATTEND Physician Assistant | DX: R07.89 Other chest pain (principal); I10 Essential (primary) hypertension; E78.2 Mixed hyperlipidemia; I34.0 Nonrheumatic mitral (valve) insufficiency | CPT/HCPCS: 93306 ==